=== PATIENT | female | born 1975 | race Caucasian/White ===

== ENCOUNTER → 2017-06-20 | Outpatient (REF) | payer BC ==
[~2017-06-20] MED LIST: IBU600 PO; IBU800 PO; IRON1TAB55 PO; LEVOXYL; OND4 PO; OXYIR PO; PER PO
== END ==
LOC: ZZSENDIN 12:00
PROVIDERS: ATTEND Obstetrics & Gynecology
DX: R10.2 Pelvic and perineal pain (principal); N93.8 Other specified abnormal uterine and vaginal bleeding
CPT/HCPCS: 88305

== ENCOUNTER → 2018-02-21 | Outpatient (CLI) | payer BC ==
[2017-08-29 08:18] VITALS: BMI 44.9
[~2018-02-21] MED LIST changes: +FERR159T PO; +LEVO-3 PO; +LEVO50TA86 PO
== END ==
LOC: RESP 19:48
PROVIDERS: ATTEND Nurse Practitioner Family
DX: G47.33 Obstructive sleep apnea (adult) (pediatric) (principal); G47.36 Sleep related hypoventilation in conditions classified elsewhere

== ENCOUNTER → 2018-11-09 | Outpatient (CLI) | payer BC ==
[2017-08-29 08:18] VITALS: BMI 44.9
--- NOTE | 2018-11-09 16:41 | RADIOLOGY IMAGING REPORT ---
[place] [facility] [place] NAME: LOULOU KOHLI : [id number] MR: [id number] V: [id number] EXAM DATE: [id number] ORDERING PHYSICIAN: BEATRIZ SCOTT TECHNOLOGIST: Liliana Antoine PROCEDURE: BILATERAL DIGITAL SCREENING MAMMOGRAM WITH CAD ASSISTED INTERPRETATION & 3D TOMOSYNTHESIS. REASON FOR STUDY: Screening. FAMILY HISTORY OF BREAST CANCER: Maternal aunt. BREAST PROCEDURES/TREATMENTS: None. COMPARISON: 05/23/15. VIEWS OBTAINED: Bilateral 2D & 3D full field CC & MLO projections. BREAST DENSITY: The breasts are almost entirely fatty. MAMMOGRAM FINDINGS: The parenchymal pattern has remained stable allowing for difference in mammographic technique & patient positioning. IMPRESSION: BIRADS 1: Negative. DIAGNOSTIC CATEGORY 1--NEGATIVE. RECOMMENDATIONS: ROUTINE MAMMOGRAM AND CLINICAL EVALUATION. Dictated by: Kortney Ventura M.D. on 11/09/2018 at 13:31 Transcribed by: CLINT on 11/09/2018 at 14:09 Approved by: Kortney Ventura M.D. on 11/09/2018 at 16:36 [facility]
== END ==
LOC: MAMO 01:08
PROVIDERS: ATTEND Nurse Practitioner Family
DX: Z12.31 Encounter for screening mammogram for malignant neoplasm of breast (principal); Z80.3 Family history of malignant neoplasm of breast
CPT/HCPCS: 77063; 77067